=== PATIENT | male | born 1995 | race Caucasian/White ===

== ENCOUNTER 2016-07-21 08:30 | Emergency (ER) | payer MEDICARE ==
--- NOTE | 2016-07-21 08:39 | ED Physician Chart ---
Chief Complaint/HPI - Patient Information Date Seen:: 07/21/16 Time Seen:: 08:30 Chief Complaint:: shortness of breath History of Present Illness:: 20-year-old male history of underlying asthma, complains of acute, worsening, constant, moderate to severe, shortness of breath since Wednesday. Has been using albuterol inhaler which seems to slightly help. Also has associated upper respiratory infection since Wednesday as well. Historian:: Patient Review:: Nurse's Note Reviewed Review of Systems - Review of Systems Other: Complete system review otherwise unremarkable except as noted in history of present illness. Past Medical History - Past Medical History Past Medical History: Asthma/COPD Family History: None Social History: Non Smoker, No Alcohol, No Drug Use Surgical History: None Psychiatricy History: None Medication: Reviewed Family Medical History - Family Member Mother Ethnicity: Non- Living Status: Hx Family Cancer: No Hx Family Coronary Artery Disease: No Hx Family Congestive Heart Failure: No Hx Family Hypertension: No Hx Family Stroke: No Other Medical History: patient denies family medical history Physical Exam - Physical Examination Other:: INITIAL VITAL SIGNS: Reviewed by me GENERAL: Alert and interactive. No acute distress HEAD: Head is normocephalic and atraumatic EYES: EOMI. PERRL. No scleral icterus. No conjunctival injection ENT: Moist mucous membranes. NECK: Supple. No masses. Full range of motion RESPIRATORY: No tachypnea. Prolonged expiratory phase bilaterally with expiratory wheezing. CV: Regular rate and rhythm. No murmurs, rubs, or gallops ABDOMEN: Soft, non-distended, non-tender. No guarding. No rebound. No masses. EXTREMITIES: No deformity. No cyanosis. No edema. SKIN: Warm and dry. No obvious rashes. NEUROLOGIC: Alert and oriented. Face is symmetric. Speech is normal. Moves all extremities equally. Motor and sensory distally intact. ED Septic Shock - . Is Septic Shock (SBP<90, OR Lactate>4 mmol\L) present?: No Reassessment (Disposition) - Reassessment Reassessment:: Blood pressure was noted to be elevated over 120/80. There were no signs of hypertension. Discussed the findings with the patient and recommended that the patient follow up with the primary care physician regarding the elevated blood pressure. Shortness of breath due to acute asthma exacerbation. Has upper respiratory infection as well. Gave breathing treatment here in the ER. Also received intramuscular Decadron. Symptoms improved. Follow-up PCP 1-2 days. Gave prescription for azithromycin due to the underlying asthma and upper respiratory infection. Also gave prednisone. Continue using albuterol as prescribed. Return to ER precautions were given. Patient says he understands and agrees with plan. Reassessment Condition:: Improved - Diagnosis Diagnosis:: Acute shortness of breath due to asthma exacerbation Elevated blood pressure without diagnosis of hypertension - Aftercare/Follow up Instructions Aftercare/Follow-Up Instructions:: Counseled pt regarding lab results/diagnosis & need follow up, Refer to Discharge Instructions Medication Prescribed:: Azithromycin/Z-Mario Prednisone - Patient Disposition Discharge/Transfer:: Home Time:: 09:00 Condition at Disposition:: Improved ED Discharge Plan - Patient Disposition Admit/Discharge/Transfer: PT DISCHARGED HOME Condition at Disposition: Improved Prescriptions: Azithromycin [Zithromax] 250 mg PO DAILY #0 tab Prednisone [Deltasone] 20 mg PO DAILY #0 tablet Instructions: Asthma, Adult Additional Instructions: Follow up with PMD in 1-3 days. Take medication as prescribed. Return to ED if SOB worsen
[2016-07-21] MEDS ORDERED: Dexamethasone Sodium Phos 10 mg/mL PF Vial ONE (08:42)
[2016-07-21] MEDS: Dexamethasone Sodium Phos 4 mg/mL Vial IM STA (08:45)
[2016-07-21] MEDS ORDERED: Albuterol Nebulizer 2.5mg/3mL HHN ONE ×2 (09:01→09:07)
[2016-07-21] MEDS ORDERED: Ipratropium Neb 0.5 mg/2.5 mL UD HHN ONE (09:02)
[2016-07-21] MEDS: Albuterol Nebulizer 2.5mg/3mL HHN STA (09:04)
[2016-07-21] MEDS: Ipratropium Neb 0.5 mg/2.5 mL UD HHN STA (09:05)
== END 2016-07-21 08:56 | disposition home or self-care (01) ==
LOC: ER 08:30
DX: J45.901 Unspecified asthma with (acute) exacerbation (principal); R03.0 Elevated blood-pressure reading, without diagnosis of hypertension; J44.9 Chronic obstructive pulmonary disease, unspecified
CPT/HCPCS: 90779; 94640; J7613; Z7502

== ENCOUNTER 2016-07-23 17:19 | Emergency (ER) | payer MEDICARE ==
[2016-07-23] MEDS ORDERED: Albuterol/Ipratropium Neb 3 ML AERS HHN ONE ×2 (18:18→18:36)
--- NOTE | 2016-07-23 18:33 | ED Physician Chart ---
Chief Complaint/HPI - Patient Information Date Seen:: 07/23/16 Time Seen:: 18:15 Chief Complaint:: shortness of breath History of Present Illness:: This patient has had shortness of breath for 4 days. He was seen here 3 days ago and prescribed a Z-Pack and prednisone 20 mg a day. Patient's had rhinorrhea and cough productive of green sputum. He did not take his temperature but thinks he had a low-grade fever. Allergies:: Allergies Allergy/AdvReac Type Severity Reaction Status Date / Time No Known Allergies Allergy Verified 07/23/16 17:44 Vitals:: Vital Signs - 8 hr 07/23/16 17:25 Temp 98.2 F HR 74 RR 20 BP 133/77 O2 Sat % 95 Historian:: Patient Review:: Nurse's Note Reviewed Review of Systems - Review of Systems General/Constitutional: Fever, No weakness Skin: No skin lesions Head: No headache Eyes: No loss of vision ENT: No earache Neck: No neck pain Cardio Vascular: No chest pain Pulmonary: SOB GI: No nausea, No vomiting Musculoskeletal: No bone or joint pain, No muscle pain Endocrine: No polyuria, No polydipsia Psychiatric: No prior psych history Hematopoietic: No bruising Allergic/Immuno: No urticaria Neurological: No syncope, No focal symptoms Past Medical History - Past Medical History Past Medical History: Asthma/COPD Family History: HTN Social History: Non Smoker, No Alcohol Surgical History: None Psychiatricy History: None Medication: Reviewed Family Medical History - Family Member Mother History Unknown: Yes Age: 57 Ethnicity: Non- Living Status: Still Living Hx Family Cancer: No Hx Family Coronary Artery Disease: No Hx Family Congestive Heart Failure: No Hx Family Hypertension: No Hx Family Stroke: No Hx Family Diabetes: No Hx Family Seizures: No Hx Family Dementia: No Hx Family AIDS: No Hx Family HIV: No Hx Family COPD: No Hx Family Hepatitis: No Hx Family Psychiatric Problems: No Hx Family Tuberculosis: No Physical Exam - Physical Examination General/Constitutional: Well-developed, well-nourished, Alert, No distress Head: Atraumatic Eyes: Lids, conjuctiva normal, PERRL Skin: Nl inspection, No rash, No skin lesions, No ecchymosis, Well hydrated, No lymphadenopathy ENMT: External ears, nose nl, TM canals nl, Nasal exam nl, Lips, teeth, gums nl , Oropharynx nl, Tonsils nl Neck: No nuchal rigidity Respiratory: Nl effort/Exclusion Other Respiratory comments:: Mildly harsh breath sounds and slight wheezing diffusely auscultated over the chest Cardio Vascular: RRR GI: No tenderness/rebounding/guarding, No organomegaly, No hernia, Nondistended , No mass/bruits, No McBurney tenderness Extremities: No tenderness or effusion Neuro/Psych: Alert/oriented, Normal gait, No focal deficits Misc: Normal back Assessment - Assessment General Assessment: instructions given for correct use of MDI. States weight is 165-170 lb. ED Septic Shock - . Is Septic Shock (SBP<90, OR Lactate>4 mmol\L) present?: No - <6hrs of presentation: Vital Signs: Vital Signs - 8 hr 07/23/16 17:25 Temp 98.2 F HR 74 RR 20 BP 133/77 O2 Sat % 95 Reassessment (Disposition) - Reassessment Reassessment Condition:: Improved - Diagnosis Diagnosis:: Exacerbation asthma - Aftercare/Follow up Instructions Aftercare/Follow-Up Instructions:: Refer to Discharge Instructions Medication Prescribed:: Home nebulizer; albuterol 2.5 mg in 3 mL normal saline #25 one box to use one 4 times a day as necessary; prednisone 60 mg a day for 5 days - Patient Disposition Discharge/Transfer:: Home Condition at Disposition:: Stable, Improved
== END 2016-07-23 19:10 | disposition home or self-care (01) ==
LOC: ER 17:19
DX: J45.901 Unspecified asthma with (acute) exacerbation (principal); J44.9 Chronic obstructive pulmonary disease, unspecified
CPT/HCPCS: Z7502